=== PATIENT | male | born 1995 | race Two or more races ===

== ENCOUNTER 2024-07-02 04:56 | Emergency (ER) | payer OTHER ==
[~2024-07-02] VITALS: Ht 177.8 cm; Wt 74.8 kg
[2024-07-02] MEDS ORDERED: TRAM1TAB98 PO (09:01)
[2024-07-02] MEDS ORDERED: ALEVE220 M1 PO (09:01)
== END 2024-07-02 09:11 | disposition home or self-care (01) ==
LOC: ER 04:58
DX: S52.032A Displaced fracture of olecranon process with intraarticular extension of left ulna, initial encounter for closed fracture (principal); W05.1XXA Fall from non-moving nonmotorized scooter, initial encounter; Y93.89 Activity, other specified; Y92.89 Other specified places as the place of occurrence of the external cause; Y99.9 Unspecified external cause status